=== PATIENT | male | born 1980 | race Caucasian/White ===

== ENCOUNTER 2016-10-10 19:51 | Emergency (ER) | payer SELFPAY ==
[~2016-10-10 19:51] MED LIST: ROBAXIN 750750 M1 PO; TYLENOL #3 PO; ZOFRAN ODT4 MG PO
[2016-10-10] MEDS ORDERED: IBUPROFEN800 MG PO (21:47)
[2016-10-10] MEDS ORDERED: AUGMENTIN PO (21:48)
== END 2016-10-10 21:48 | disposition home or self-care (01) ==
LOC: SED 19:51
DX: K04.7 Periapical abscess without sinus (principal); R03.0 Elevated blood-pressure reading, without diagnosis of hypertension; F17.200 Nicotine dependence, unspecified, uncomplicated
CPT/HCPCS: 99282

== ENCOUNTER 2016-10-17 08:55 | Emergency (ER) | payer SELFPAY ==
--- NOTE | ~2016-10-17 | CT98 ---
[facility]. [facility] A Service of [facility] RADIOLOGY TEXT RESULTS PATIENT: CINDY EASTMAN LOCATION: SED : 76 UNIT #: [id number] AGE: [address]: Chintan Acosta MD SEX: M ORDER DR: [id number] [place] [id number] E MR#: [id number] Acc #: [id number] NAME: CINDY EASTMAN : 1980 SEX: M STUDY DATE/TIME: 10/17/2016 10:29 UNIT: SED ROOM: STUDY DESCRIPTION: CT Lumbar Spine Wo Cont Attending Physician: Chintan Acosta M.D. Ordering Physician: Chintan Acosta M.D. MEDICAL IMAGING REPORT This report is preliminary unless electronic signature is present. EXAM CT lumbar spine, 10/17/2016 HISTORY Low back pain for 3 days after lifting logs in yard. TECHNIQUE This CT exam was performed with one or more of the following radiation dose reduction techniques: automatic exposure control, adjustment of mA and/or kV according to patient size, and iterative reconstruction. FINDINGS CT lumbar spine performed. Bone soft tissue windows reviewed. Sagittal and coronal reconstructions performed. Visualized portions of pancreas, adrenal glands, kidneys, small bowel colon unremarkable. No adenopathy. Aorta normal in caliber. Lumbar spine shows normal alignment. No traumatic fracture or malalignment. Vertebral body heights, intervertebral disc space heights, facet joint relationships normal. T12-L1, L1-L2, L2-L3: No fracture or herniation. Spinal canal diameter normal. Neural foramina patent without evidence of exiting nerve impingement. L3-L4: No significant disc bulge or herniation. Spinal canal diameters normal. The neural foramina are patent without evidence of exiting nerve impingement. L4-L5: Mild posterior concentric disc bulge. There is probably a central disc protrusion component extending slightly caudad along the posterior L5 vertebral body for a distance of about 6 mm. No indication of free disc STS. [facility] A Service of [facility] RADIOLOGY TEXT RESULTS PATIENT: CINDY EASTMAN LOCATION: SED : 76 UNIT #: [id number] AGE: [address]: Chintan Acosta MD SEX: M ORDER DR: fragment on this examination. There is minimal mass effect on the anterior thecal space. There is no spinal stenosis. There is mild mass effect on the bilateral lateral recesses. The disc bulge may abut the proximal descending bilateral L5 nerve root sleeves. Correlate with any L5 dermatomal symptoms. I do not see a distinct variation in course of the L5 nerve roots. L5-S1: Mild posterior concentric disc bulge. No spinal stenosis. The neural foramina are patent without evidence of exiting nerve impingement. IMPRESSION 1. No fracture or malalignment. 2. Mild posterior concentric disc bulge L4 - L5 with what appears to be a small central protrusion component extending inferiorly along the posterior L5 vertebral body for a distance of about 6 mm. There is no clear indication of free disc fragment. There is only mild mass effect on the anterior thecal sac, and there is no significant spinal canal narrowing. The generalized disc bulge does abut the proximal descending L5 nerve root sleeves. I do not see a distinct mass effect on the nerve root sleeves. Correlate with any L5 dermatomal symptoms. 3. Mild posterior concentric disc bulge L5-S1. No spinal stenosis. No mass effect on the thecal sac and no impact on the descending S1 nerve roots. Remainder study unremarkable. Dictated by... Lavell Beltran M.D. THIS IS AN ELECTRONICALLY VERIFIED REPORT Lavell Beltran M.D. at 10/22/2016 10:14 AM DOMINGO/amparo TD: 10/17/2016 12:45 JOB #: [id number] MEDICAL IMAGING REPORT Page 1 of 1
[~2016-10-17 08:55] MED LIST changes: +AUGMENTIN PO; +IBUPROFEN800 MG PO
== END 2016-10-17 11:41 | disposition home or self-care (01) ==
LOC: SED 08:55
DX: S39.012A Strain of muscle, fascia and tendon of lower back, initial encounter (principal); X50.9XXA Other and unspecified overexertion or strenuous movements or postures, initial encounter
CPT/HCPCS: 72131; 96372; 99283; J1170; J1885